=== PATIENT | female | born 1945 | race Caucasian/White ===

== ENCOUNTER 2023-08-17 15:18 | Inpatient (IN) | payer OTHER ==
[~2023-08-17] VITALS: Ht 165.1 cm; Wt 51.7 kg
[2023-08-17 15:18] VITALS: BP_SYST 129; PULSE 101; RESP 18; TEMP 98.4; O2SAT 96
[~2023-08-17 15:18] MED LIST: ALBU8.5H8 INH; AMLO5TAB4 PO; FLUT1DIS INH; LIP10 PO; OMEP20CA15 PO
[2023-08-17] MEDS: NITROGLYCERIN 0.4 MG TAB.SUBL SL ONE (16:06)
[2023-08-17 16:11] LABS: BASOPHILS % (AUTO) 0.3 % (0.0-2.0); EOSINOPHILS % (AUTO) 0.1 % (0.0-4.0); HEMATOCRIT 49.3 % (36-48); HEMOGLOBIN 17.2 g/dL (12.0-16.0); LYMPHOCYTES # (AUTO) 1.3 K/uL (1.0-5.5); LYMPHOCYTES % (AUTO) 12.6 % (20.5-51.5); MEAN CORPUSCULAR HEMOGLOBIN 37 pg (27-31); MEAN CORPUSCULAR HGB CONC 35 % (32-36); MEAN CORPUSCULAR VOLUME 106 fL (79.0-98.0); MONOCYTES # (AUTO) 0.8 K/uL (0.0-1.0); NEUTROPHILS # (AUTO) 8.3 K/uL (1.8-7.7); PLATELET COUNT (AUTO) 239 K/uL (130-430); RED BLOOD CELL COUNT(AUTO) 4.66 MIL/uL (4.2-6.2); RED CELL DISTRIBUTION WIDTH 13.1 % (9.0-15.0); WHITE BLOOD COUNT (AUTO) 10.5 K/uL (4.8-10.8)
[2023-08-17 16:24] LABS: ANION GAP 16 (5-15); CALCIUM 10.3 mg/dL (8.4-11.0); CARBON DIOXIDE 23 mmol/L (23-29); CHLORIDE 97 mmol/L (98-107); CREATININE 0.97 mg/dL (0.55-1.30); GLUCOSE 126 mg/dL (74-106); POTASSIUM 3.4 mmol/L (3.5-5.1); SODIUM SERUM 136 mmol/L (136-145); UREA NITROGEN, BLOOD 20 mg/dL (8-21)
[2023-08-17] MEDS: GLUCAGON,HUMAN RECOMBINANT 1 MG VIAL IVP ONE (16:31)
[2023-08-17 16:33] LABS: ALANINE AMINOTRANSFERASE 47 U/L (12-78); ALBUMIN 4.3 g/dL (3.4-4.8); ASPARTATE AMINOTRANSFERASE 34 U/L (10-37); BILIRUBIN,DIRECT 0.4 mg/dL (0.0-0.3); TOTAL BILIRUBIN 1.3 mg/dL (0.0-1.0); TOTAL PROTEIN, SERUM 8.5 g/dL (6.4-8.3)
[2023-08-17] MEDS ORDERED: hydrALAZINE HCL 20 MG/ML VIAL IVP PRN (17:15)
[2023-08-17] MEDS ORDERED: ONDANSETRON HCL 4 MG/2 ML VIAL IVP PRN (17:15)
[2023-08-17] MEDS ORDERED: HYDROcodone/ACETAMIN 10-325 MG TAB PO PRN (17:15)
[2023-08-17] MEDS ORDERED: ACETAMINOPHEN 325 MG TABLET PO PRN (17:15)
[2023-08-17] MEDS: NACL 0.9% 1,000 ML IV ONE (17:32)
[2023-08-17 17:48] VITALS: BP_SYST 129; PULSE 101; O2SAT 96
[2023-08-17 18:35] LABS: STOMATOCYTES FEW
[2023-08-17] MEDS: IPRATROPIUM BROM 0.5 MG/2.5 ML VIAL.NEB (ATROVENT) INH SCH (20:34)
[2023-08-17 20:41] VITALS: O2SAT 98
[2023-08-18] VITALS (11 sets, daily range): BP systolic 134–152; PULSE 77–96; RESP 18–20; TEMP 96.6–98; O2SAT 9–99
[2023-08-18] MEDS: MORPHINE 2 MG/ML INJ. SYRINGE IVP PRN (07:40)
[2023-08-18] MEDS ORDERED: MORPHINE 2 MG/ML INJ. SYRINGE ONE (07:41)
[2023-08-18 08:21] LABS: BASOPHILS % (AUTO) 0.6 % (0.0-2.0); EOSINOPHILS # (AUTO) 0.1 K/uL (0.0-0.4); EOSINOPHILS % (AUTO) 1.5 % (0.0-4.0); HEMATOCRIT 44.9 % (36-48); HEMOGLOBIN 15.5 g/dL (12.0-16.0); LYMPHOCYTES # (AUTO) 1.5 K/uL (1.0-5.5); LYMPHOCYTES % (AUTO) 18.7 % (20.5-51.5); MEAN CORPUSCULAR HEMOGLOBIN 36 pg (27-31); MEAN CORPUSCULAR HGB CONC 34 % (32-36); MEAN CORPUSCULAR VOLUME 106 fL (79.0-98.0); MONOCYTES # (AUTO) 0.7 K/uL (0.0-1.0); MONOCYTES % (AUTO) 9.2 % (1.7-9.3); NEUTROPHILS # (AUTO) 5.7 K/uL (1.8-7.7); PLATELET COUNT (AUTO) 206 K/uL (130-430); RED BLOOD CELL COUNT(AUTO) 4.25 MIL/uL (4.2-6.2); WHITE BLOOD COUNT (AUTO) 8.1 K/uL (4.8-10.8)
[2023-08-18] MEDS: fentaNYL CITRATE/PF 100 MCG/2 ML AMP ONE (08:24)
[2023-08-18] MEDS: MIDAZOLAM HCL 5 MG/5 ML VIAL ONE (08:25)
[2023-08-18] MEDS: SIMETHICONE 40 MG/0.6 ML ML ONE (08:36)
[2023-08-18 08:46] LABS: ALANINE AMINOTRANSFERASE 39 U/L (12-78); ALBUMIN 3.5 g/dL (3.4-4.8); ANION GAP 15 (5-15); ASPARTATE AMINOTRANSFERASE 27 U/L (10-37); CALCIUM 9.5 mg/dL (8.4-11.0); CARBON DIOXIDE 23 mmol/L (23-29); CHLORIDE 106 mmol/L (98-107); CREATININE 0.64 mg/dL (0.55-1.30); GLUCOSE 85 mg/dL (74-106); POTASSIUM 3.1 mmol/L (3.5-5.1); SODIUM SERUM 144 mmol/L (136-145); TOTAL BILIRUBIN 1.1 mg/dL (0.0-1.0); TOTAL PROTEIN, SERUM 7.1 g/dL (6.4-8.3); UREA NITROGEN, BLOOD 27 mg/dL (8-21)
[2023-08-18] MEDS: ACETAMINOPHEN 325 MG TABLET PO PRN (13:32)
[2023-08-18] MEDS: amLODIPine BESYLATE 5 MG TABLET PO ONE (18:01)
[2023-08-18] MEDS: PANTOPRAZOLE SODIUM 40 MG/VIAL (PROTONIX) IVP SCH (21:00)
[2023-08-18] MEDS: HYDROcodone/ACETAMIN 5-325 MG TAB (NORCO/ VICODIN) PO PRN (22:34)
[2023-08-19 03:27] VITALS: O2SAT 94
[2023-08-19 04:35] VITALS: BP_SYST 145; PULSE 74; RESP 20; TEMP 96.7
[2023-08-19 06:27] LABS: BASOPHILS # (AUTO) 0.1 K/uL (0.0-0.2); BASOPHILS % (AUTO) 0.9 % (0.0-2.0); EOSINOPHILS # (AUTO) 0.2 K/uL (0.0-0.4); EOSINOPHILS % (AUTO) 2.8 % (0.0-4.0); HEMATOCRIT 43.6 % (36-48); HEMOGLOBIN 15.2 g/dL (12.0-16.0); LYMPHOCYTES # (AUTO) 1.4 K/uL (1.0-5.5); LYMPHOCYTES % (AUTO) 16.7 % (20.5-51.5); MEAN CORPUSCULAR HEMOGLOBIN 37 pg (27-31); MEAN CORPUSCULAR HGB CONC 35 % (32-36); MEAN CORPUSCULAR VOLUME 105 fL (79.0-98.0); MONOCYTES # (AUTO) 0.7 K/uL (0.0-1.0); MONOCYTES % (AUTO) 8.7 % (1.7-9.3); NEUTROPHILS # (AUTO) 5.8 K/uL (1.8-7.7); NEUTROPHILS % (AUTO) 70.9 % (40.0-70.0); PLATELET COUNT (AUTO) 190 K/uL (130-430); RED BLOOD CELL COUNT(AUTO) 4.14 MIL/uL (4.2-6.2); RED CELL DISTRIBUTION WIDTH 12.9 % (9.0-15.0); WHITE BLOOD COUNT (AUTO) 8.2 K/uL (4.8-10.8)
[2023-08-19 07:10] LABS: ALANINE AMINOTRANSFERASE 35 U/L (12-78); ALBUMIN 3.3 g/dL (3.4-4.8); ANION GAP 13 (5-15); ASPARTATE AMINOTRANSFERASE 26 U/L (10-37); CALCIUM 9.4 mg/dL (8.4-11.0); CARBON DIOXIDE 26 mmol/L (23-29); CHLORIDE 105 mmol/L (98-107); CREATININE 0.53 mg/dL (0.55-1.30); GLUCOSE 83 mg/dL (74-106); SODIUM SERUM 144 mmol/L (136-145); TOTAL PROTEIN, SERUM 6.9 g/dL (6.4-8.3); UREA NITROGEN, BLOOD 25 mg/dL (8-21)
[2023-08-19 08:30] VITALS: O2SAT 99
[2023-08-19 08:43] LABS: POTASSIUM 2.7 mmol/L (3.5-5.1)
[2023-08-19] MEDS: SUCRALFATE 1 GM/10 ML UDC GT ONE (09:44)
[2023-08-19] MEDS: ATORVASTATIN 10 MG TABLET PO SCH (09:45)
[2023-08-19] MEDS: amLODIPine BESYLATE 5 MG TABLET PO SCH (09:45)
[2023-08-19 12:46] VITALS: BP_SYST 137; PULSE 76; RESP 16; TEMP 97.4; O2SAT 96
[2023-08-19] MEDS: POTASSIUM CHLORIDE 20 MEQ/PKT PACKET PO ONE (12:51)
[2023-08-19] MEDS ORDERED: POTASSIUM CHLORIDE 40 MEQ, LIDOCAINE JECT 2% PF 100 MG 50 MG in NS 250 ML IV ONE (13:00)
[2023-08-19 16:03] LABS: ANION GAP 11 (5-15); CALCIUM 9.4 mg/dL (8.4-11.0); CARBON DIOXIDE 24 mmol/L (23-29); CHLORIDE 105 mmol/L (98-107); CREATININE 0.62 mg/dL (0.55-1.30); GLUCOSE 129 mg/dL (74-106); POTASSIUM 3.7 mmol/L (3.5-5.1); SODIUM SERUM 140 mmol/L (136-145); UREA NITROGEN, BLOOD 22 mg/dL (8-21)
[2023-08-19 16:05] VITALS: BP_SYST 130; PULSE 71; RESP 16; TEMP 98; O2SAT 95
[2023-08-19] MEDS: SUCRALFATE 1 GM/10 ML UDC GT SCH (16:13)
[2023-08-19] MEDS ORDERED: PRO40 PO (16:35)
[2023-08-19] MEDS ORDERED: SUCR1TAB2 PO (16:35)
[2023-08-19 18:01] VITALS: BP_SYST 130; PULSE 95; RESP 16; TEMP 97.6; O2SAT 98
== END 2023-08-19 18:42 | disposition home or self-care (01) | DRG 394 ==
LOC: SED 15:18 → SMU 17:05
PROVIDERS: ADMIT Family Medicine; ATTEND Family Medicine
PROC: 0DC58ZZ Extirpation of Matter from Esophagus, Via Natural or Artificial Opening Endoscopic (ICD-10-PCS; principal; 2023-08-18 08:00)
DX: T18.128A Food in esophagus causing other injury, initial encounter (principal); R71.0 Precipitous drop in hematocrit; K20.90 Esophagitis, unspecified without bleeding; K21.9 Gastro-esophageal reflux disease without esophagitis; E78.5 Hyperlipidemia, unspecified; K44.9 Diaphragmatic hernia without obstruction or gangrene; K22.2 Esophageal obstruction; I10 Essential (primary) hypertension; Z88.2 Allergy status to sulfonamides; Z91.030 Bee allergy status
CPT/HCPCS: 36415; 43247; 71045; 74220; 80048; 80053; 80076; 84484; 85025; 93005; 94640; 94760; 97116-GP; 99285; C9113; J1610; J2250; J2270; J3010; J3480; J7050